=== PATIENT | female | born 1975 | race Caucasian/White ===

== ENCOUNTER 2016-11-07 09:12 | Emergency (ER) | payer OTHER ==
[~2016-11-07] VITALS: Ht 167.6 cm; Wt 57.0 kg
[~2016-11-07 09:12] MED LIST: PRENTAB72 PO
[2016-11-07 09:13] VITALS: BP 130/70; PULSE 99; RESP 18; TEMP 98.2; O2SAT 99
[2016-11-07] MEDS ORDERED: SODIUM CHLOR 0.9% 1000 ML INJ 1,000 ML IV SCH (09:28)
[2016-11-07] MEDS ORDERED: SODIUM CHLORIDE 0.9% FLUSH 10 ML FLUSH IV FLUSH PRN (09:30)
[2016-11-07] MEDS ORDERED: ONDANSETRON HCL 4 MG/2 ML VIAL IVP ONE (09:30)
[2016-11-07] MEDS ORDERED: MORPHINE SULFATE 4 MG/ML INJ IV PUSH ONE (09:30)
[2016-11-07 10:02] LABS: AUTOMATED NEUTROPHIL # 9.1 TH/MM3 (1.8-7.7); BASOPHIL % 0.2 % (0.0-2.0); EOSINOPHIL # 0.1 TH/MM3 (0-0.4); EOSINOPHIL % 0.8 % (0.0-4.0); HEMATOCRIT 41.7 % (35.0-46.0); HEMO FLAGS DIFF FINAL; LYMPH % 8.7 % (9.0-44.0); MEAN CORPUSCULAR HEMOGLOBIN 29.5 PG (27.0-34.0); MEAN CORPUSCULAR HGB CONC 33.5 % (32.0-36.0); MONO % 8.1 % (0.0-8.0); NEUT % 82.2 % (16.0-70.0); PLATELET COUNT 219 TH/MM3 (150-450); RED BLOOD COUNT 4.74 MIL/MM3 (4.00-5.30); RED CELL DISTRIBUTION WIDTH 12.7 % (11.6-17.2)
[2016-11-07 10:10] VITALS: BP 120/85; PULSE 84; RESP 16; O2SAT 100
[2016-11-07 10:10] LABS: APTT (PATIENT) 30.6 SEC (24.3-30.1); PROTHROMBIN TIME - PATIENT 11.4 SEC (9.8-11.6)
[2016-11-07 10:17] LABS: ANION GAP 10 MEQ/L (5-15); AST (GOT) 13 U/L (15-37); BICARBONATE 25.4 MEQ/L (21.0-32.0); BLOOD UREA NITROGEN 5 MG/DL (7-18); CHLORIDE 106 MEQ/L (98-107); GLOMERULAR FILTRATION RATE 83 ML/MIN (>89); POTASSIUM 3.6 MEQ/L (3.5-5.1); SODIUM (NA) 141 MEQ/L (136-145)
[2016-11-07 10:20] LABS: ALKALINE PHOSPHATASE 70 U/L (45-117); ALT (GPT) 13 U/L (10-53); TOTAL BILIRUBIN ADULT 0.4 MG/DL (0.2-1.0)
[2016-11-07 10:36] LABS: BACTERIA, URINE MOD /hpf; BLOOD, URINE NEG (NEG); GLUCOSE,URINE NEG (NEG); KETONE, URINE 40 mg/dL (NEG); MUCUS URINE FEW /lpf (OCC); NITRITE,URINE NEG (NEG); PH, URINE 6.5 (5.0-8.5); SQUAMOUS EPITHELIAL CELL URINE 89 /hpf (0-5); URINE COLOR YELLOW (YELLW/STRAW)
[2016-11-07 10:38] LABS: COMMENT (UR) CULTURE INDICATED; CULTURE IF INDICATED CULTURE INDICATED
[2016-11-07] MEDS ORDERED: IOHEXOL 350 MG/ML 10 ML VIAL (for RAD DIAG) IV ONE (10:39)
--- NOTE | 2016-11-07 11:04 | RADRPT ---
EXAM DATE/TIME: 11/07/2016 10:20 [place] COMPARISON: No previous studies available for comparison. INDICATIONS : Left lower abdomen pain for one day. IV CONTRAST: 86 cc Omnipaque 350 (iohexol) IV ORAL CONTRAST: No oral contrast ingested. RADIATION DOSE: 4.86 CTDIvol (mGy) MEDICAL HISTORY : None SURGICAL HISTORY : None. ENCOUNTER: Initial ACUITY: 1 day PAIN SCALE: 3/10 LOCATION: Left lower quadrant TECHNIQUE: Volumetric scanning of the abdomen and pelvis was performed. Using automated exposure control and ad justment of the mA and/or kV according to patient size, radiation dose was kept as low as reasonably achievable to obtain optimal diagnostic quality images. FINDINGS: LOWER LUNGS: The visualized lower lungs are clear. LIVER: Homogeneous density without lesion. There is no dilation of the biliary tree. No calcified gallston es. SPLEEN: Normal size without lesion. PANCREAS: Within normal limits. KIDNEYS: Normal in size and shape. There is no mass or hydronephrosis. There is a nonobstructing 2 mm stone i n the left mid kidney. A 5 mm low-density lesion in the right mid kidney is too small to characterize . ADRENAL GLANDS: Within normal limits. VASCULAR: There is no aortic aneurysm. BOWEL/MESENTERY: The stomach and small bowel demonstrate no acute finding. Appendix is normal. There is sigmoid divert iculosis. A 9 cm segment of distal descending and proximal sigmoid colon demonstrates a severe circum ferential wall thickening. Multiple diverticula are present in this area. There is pericolonic inflam matory change. No free intraperitoneal air or fluid. ABDOMINAL WALL: Within normal limits. RETROPERITONEUM: There is no lymphadenopathy. BLADDER: No wall thickening or mass. REPRODUCTIVE: Within normal limits. INGUINAL: There is no lymphadenopathy or hernia. MUSCULOSKELETAL: Within normal limits for patient age. CONCLUSION: 1. There is a 9 cm segment of abnormal proximal sigmoid colon demonstrating severe wall thickening an d pericolonic inflammation. There are multiple diverticula in this region suggesting is likely relate d to an acute diverticulitis over a colitis. There is no abscess, free air, or free fluid. 2. There is a 2 mm nonobstructing left renal stone. Greg Casarez MD on November 07, 2016 at 10:57 Board Certified Radiologist. This report was verified electronically.
[2016-11-07 11:08] VITALS: PULSE 78; RESP 16; O2SAT 100
[2016-11-07] MEDS ORDERED: METR-1 PO (11:21)
[2016-11-07] MEDS ORDERED: HYDR-3516 PO (11:21)
[2016-11-07] MEDS ORDERED: CIPR500T2 PO (11:21)
--- NOTE | 2016-11-07 11:21 | PD ---
HPI Chief Complaint: Abdominal Pain Time Seen by Provider: 09:23 Travel History International Travel<30 days: No Contact w/Intl Traveler<30days: No Traveled to known affect area: No History of Present Illness HPI Patient is a 41 year old female who comes in complaining of left sided abdominal pain that started yesterday. She denies any nausea, vomiting, diarrhea. She says she did feel like she was constipated yesterday and only had a small bowel movement. She denies any fever or chills. She has never had pain like this before. She denies any dysuria or vaginal discharge. She tried taking some Excedrin yesterday, but this did not help. PFSH Past Medical History Diabetes: No Patient Takes Glucophage: No Diminished Hearing: No Tetanus Vaccination: > 5 Years ?: Not : 3 Para: 3 Tubal Ligation: Yes (2015) Past Surgical History Section: No Tonsillectomy: Yes Social History Alcohol Use: Yes (very rare) Tobacco Use: No Substance Use: No Allergies-Medications (Allergen,Severity, Reaction): Coded Allergies: Penicillin (Verified Allergy, Mild, NAUSEA, POSSIBLE RASH, 01/20/13) Reported Meds & Prescriptions Reported Meds & Active Scripts Active Review of Systems Except as stated in HPI: all other systems reviewed are Neg General / Constitutional: No: Fever, Chills HENT: No: Headaches, Lightheadedness Cardiovascular: No: Chest Pain or Discomfort Respiratory: No: Shortness of Breath Gastrointestinal: Positive: Abdominal Pain, Constipation, No: Nausea, Vomiting Genitourinary: No: Dysuria, Discharge Musculoskeletal: No: Myalgias Skin: No Rash Neurologic: No: Weakness, Dizziness Physical Exam Narrative GENERAL: Awake and alert, in no acute distress. SKIN: Focused skin assessment warm/dry. HEAD: Atraumatic. Normocephalic. EYES: Pupils equal and round. No scleral icterus. ENT: Mucous membranes pink and moist. NECK: Trachea midline. No JVD. CARDIOVASCULAR: Regular rate and rhythm. No murmur appreciated. RESPIRATORY: No accessory muscle use. Clear to auscultation. Breath sounds equal bilaterally. GASTROINTESTINAL: Abdomen soft, nondistended. Very tender to palpation of the left side of the abdomen, worse in the left lower quadrant. Voluntary guarding , no rebound. MUSCULOSKELETAL: No obvious deformities. No clubbing. No cyanosis. No edema. NEUROLOGICAL: Awake and alert. No obvious cranial nerve deficits. Motor grossly within normal limits. Normal speech. PSYCHIATRIC: Appropriate mood and affect; insight and judgment normal. Data Data Last Documented VS Vital Signs Date Time Temp Pulse Resp B/P Pulse Ox O2 Delivery O2 Flow Rate FiO2 11/07/16 11:08 78 16 100 Room Air 11/07/16 10:10 120/85 11/07/16 09:13 98.2 Orders Complete Blood Count With Diff (11/07/16:28) Comprehensive Metabolic Panel (11/07/16:) Lactic Acid (11/07/16:28) Prothrombin Time / Inr (Pt) (11/07/16:) Act Partial Throm Time (Ptt) (11/07/16:) Urinalysis - C+S If Indicated (11/07/16:28) Ua Includes Microscopic (11/07/16:) Ct Abd/Pel W Iv Contrast(Rout) (11/07/16 09:28) Iv Access Insert/Monitor (11/07/16:28) Ecg Monitoring (11/07/16:28) Oximetry (11/07/16:28) Morphine Inj (Morphine Inj) (11/07/16 09:30) Ondansetron Inj (Zofran Inj) (11/07/16 09:30) Sodium Chlor 0.9% 1000 Ml Inj (Ns 1000 M (11/07/16 09:28) Sodium Chloride 0.9% Flush (Ns Flush) (11/07/16 09:30) Ed Urine Pregnancytest Poc (11/07/16 09:28) Urine Culture (11/07/16 09:30) Iohexol 350 Inj (Omnipaque 350 Inj) (11/07/16 10:39) Labs Laboratory Tests Test 11/07/16 11/07/16 09:30 09:40 Urine Color YELLOW Urine Turbidity CLOUDY Urine pH 6.5 Urine Specific [place] 1.012 Urine Protein TRACE mg/dL Urine Glucose (UA) NEG mg/dL Urine Ketones 40 mg/dL Urine Occult Blood NEG Urine Nitrite NEG Urine Bilirubin NEG Urine Urobilinogen LESS THAN 2.0 MG/DL Urine Leukocyte Esterase SMALL Urine RBC 1 /hpf Urine WBC 7 /hpf Urine Squamous Epithelial 89 /hpf Cells Urine Bacteria MOD /hpf Urine Mucus FEW /lpf Microscopic Urinalysis Comment CULTURE INDICATED White Blood Count 11.0 TH/MM3 Red Blood Count 4.74 MIL/MM3 Hemoglobin 14.0 GM/DL Hematocrit 41.7 % Mean Corpuscular Volume 88.0 FL Mean Corpuscular Hemoglobin 29.5 PG Mean Corpuscular Hemoglobin 33.5 % Concent Red Cell Distribution Width 12.7 % Platelet Count 219 TH/MM3 Mean Platelet Volume 9.4 FL Neutrophils (%) (Auto) 82.2 % Lymphocytes (%) (Auto) 8.7 % Monocytes (%) (Auto) 8.1 % Eosinophils (%) (Auto) 0.8 % Basophils (%) (Auto) 0.2 % Neutrophils # (Auto) 9.1 TH/MM3 Lymphocytes # (Auto) 1.0 TH/MM3 Monocytes # (Auto) 0.9 TH/MM3 Eosinophils # (Auto) 0.1 TH/MM3 Basophils # (Auto) 0.0 TH/MM3 CBC Comment DIFF FINAL Differential Comment Prothrombin Time 11.4 SEC Prothromb Time International 1.0 RATIO Ratio Activated Partial 30.6 SEC Thromboplast Time Sodium Level 141 MEQ/L Potassium Level 3.6 MEQ/L Chloride Level 106 MEQ/L Carbon Dioxide Level 25.4 MEQ/L Anion Gap 10 MEQ/L Blood Urea Nitrogen 5 MG/DL Creatinine 0.77 MG/DL Estimat Glomerular Filtration 83 ML/MIN Rate Random Glucose 88 MG/DL Lactic Acid Level 1.1 mmol/L Calcium Level 8.7 MG/DL Total Bilirubin 0.4 MG/DL Aspartate Amino Transf 13 U/L (AST/SGOT) Alanine Aminotransferase 13 U/L (ALT/SGPT) Alkaline Phosphatase 70 U/L Total Protein 7.3 GM/DL Albumin 3.9 GM/DL [facility] Medical Decision Making Medical Screen Exam Complete: Yes Emergency Medical Condition: Yes Medical Record Reviewed: Yes Differential Diagnosis Diverticulitis versus colitis versus constipation versus ruptured viscus Narrative Course Patient is a 41-year-old female comes in complaining of left-sided abdominal pain. Exam shows extreme tenderness to left side of the abdomen. IV established, labs sent. Labs show no acute abnormalities. An IV fluids, morphine, Zofran. CT of the abdomen and pelvis performed shows pancolitis versus diverticulitis of the sigmoid colon. No signs of complications. Last 24 hours Impressions Abdomen/Pelvis CT 11/07/16 0928 Signed Impressions: Service Date/Time: Monday, November 07, 2016 10:20 - CONCLUSION: 1. There is a 9 cm segment of abnormal proximal sigmoid colon demonstrating severe wall thickening and pericolonic inflammation. There are multiple diverticula in this region suggesting is likely related to an acute diverticulitis over a colitis. There is no abscess, free air, or free fluid. 2. There is a 2 mm nonobstructing left renal stone. Greg Casarez MD Patient reports feeling better after medications. Patient will be discharged with prescriptions for Cipro and Flagyl. Advised to avoid alcohol while taking antibiotics. Given a prescription for pain medicine. Advised follow-up with her primary care doctor. Advised to return to the ED at any time for any worsening symptoms. Diagnosis Primary Impression: Diverticulitis Qualified Code: K57.32 - Diverticulitis of large intestine without perforation or abscess without bleeding Patient Instructions: Diverticulitis (ED), General Instructions Additional Instructions: Take all of your antibiotics. Drink plenty of fluids. Avoid alcohol while taking the antibiotics. Take pain medicine as needed. Return to the ED as needed for any worsening symptoms. Follow up with your primary care doctor. Scripts Hydrocodone-Acetaminophen 5-325 mg Tab1 Tab PO Q6H PRN (PAIN) #12 TAB Ref 0 Prov:Roberta Naidu MD 11/07/16 Metronidazole (Flagyl)500 Mg [id number] Mg PO TID 7 Days Ref 0 Prov:Roberta Naidu MD 11/07/16 Ciprofloxacin 500 Mg [id number] Mg PO BID 7 Days Ref 0 Prov:Roberta Naidu MD 11/07/16 Disposition: 01 DISCHARGE HOME Condition: Stable Roberta Naidu MD November 07, 2016 11:21
[2016-11-07 11:47] VITALS: BP 128/74; TEMP 98.2
== END 2016-11-07 11:48 | disposition home or self-care (01) ==
LOC: NEPD 09:12
DX: K57.32 Diverticulitis of large intestine without perforation or abscess without bleeding (principal); K59.00 Constipation, unspecified; N20.0 Calculus of kidney
CPT/HCPCS: 74177; 80053; 81001; 83605; 84703; 85025; 85610; 85730; 87086; 96361; 96374; 96375; 99285; J2270; J2405; J7030; Q9967